=== PATIENT | male | born 1965 | race Caucasian/White ===

== ENCOUNTER 2018-02-10 10:05 | Day surgery (SDC) | payer OTHER ==
[2018-02-10] MEDS ORDERED: PROPOFOL 60 ML (13:37)
[2018-02-10] MEDS ORDERED: LIDOCAINE 2% (SDV) 5 ML INJ (13:37)
== END 2018-02-10 17:12 | disposition home or self-care (01) ==
LOC: GIL 10:05
DX: Z12.11 Encounter for screening for malignant neoplasm of colon (principal)
CPT/HCPCS: 45378

== ENCOUNTER 2019-02-01 05:55 | Inpatient (IN) | payer OTHER ==
[2019-01-31] MEDS: ACETAMINOPHEN 500 MG TAB PO (20:30)
[2019-02-01] MEDS ORDERED: CEFAZOLIN 2 GM/50 ML (PMX) 50 ML IVPB (06:00)
[2019-02-01] MEDS ORDERED: DESFLURANE 15 MIN (07:00)
[2019-02-01] MEDS ORDERED: EPHEDrine SULFATE 50 MG/5 ML SYG (07:00)
[2019-02-01] MEDS ORDERED: ROCURONIUM 50 MG INJ ×2 (07:00→07:25)
[2019-02-01] MEDS: ACETAMINOPHEN 500 MG TAB PO (07:06)
[2019-02-01] MEDS: GABAPENTIN 300 MG CAP PO (07:21)
[2019-02-01] MEDS ORDERED: PROPOFOL 40 ML ×3 (07:24→10:04)
[2019-02-01] MEDS ORDERED: FENTAnyl 50 MCG/ML VIAL ×2 (07:25→08:46)
[2019-02-01] MEDS ORDERED: ONDANSETRON 4 MG INJ (07:25)
[2019-02-01] MEDS ORDERED: CEFAZOLIN 1 GM INJ (07:25)
[2019-02-01] MEDS ORDERED: MIDAZOLAM 1 MG/ML 2 ML INJ (07:25)
[2019-02-01] MEDS ORDERED: LIDOCAINE 2% (SDV) 5 ML INJ (07:25)
[2019-02-01] MEDS ORDERED: FAMOTIDINE 20 MG INJ (07:25)
[2019-02-01] MEDS ORDERED: PHENYLephrine 10 MG INJ (07:26)
[2019-02-01] MEDS ORDERED: DIPHENHYDRAMINE 50 MG INJ IV (07:30)
[2019-02-01] MEDS ORDERED: FENTAnyl 50 MCG/ML VIAL IV ×2 (07:30)
[2019-02-01] MEDS ORDERED: MEPERIDINE 25 MG INJ IV (07:30)
[2019-02-01] MEDS ORDERED: HYDROmorphONE 1 MG/5 ML IV SYRINGE IV ×3 (07:30)
[2019-02-01] MEDS ORDERED: ONDANSETRON 4 MG INJ IV ×2 (07:30→12:30)
[2019-02-01] MEDS ORDERED: OXYCODONE/ACETAMINOPHEN (5/325) TAB PO ×2 (07:30)
[2019-02-01] MEDS ORDERED: ALBUTEROL 0.083% (NEB) 2.5 MG/3 ML AMP HHN (07:30)
[2019-02-01] MEDS ORDERED: LABETALOL HCL 20MG INJ IV (07:30)
[2019-02-01] MEDS ORDERED: morphine (1 MG/ML) 10ML SYRINGE IV ×2 (07:30)
[2019-02-01] MEDS: POLYMYXIN/BACITRACIN 1L IRRIG IRR (07:31)
[2019-02-01] MEDS ORDERED: POLYMYXIN/BACITRACIN 1L IRRIG (08:06)
[2019-02-01] MEDS: LIDOCAINE 2% (MDV) 20 ML INJ (08:39)
[2019-02-01] MEDS: BUPIVACAINE 0.5% (SDV) 30 ML INJ (08:39)
[2019-02-01] MEDS: TRANEXAMIC ACID 1GM/100ML(PMX) 100 ML (08:40)
[2019-02-01] MEDS ORDERED: SUGAMMADEX SODIUM 200 MG/2 ML VIAL IV (11:14)
[2019-02-01] MEDS ORDERED: NACL 0.9% 3 ML SYG IV (12:30)
[2019-02-01] MEDS ORDERED: LORAZEPAM 2 MG INJ IV (18:00)
[2019-02-01] MEDS: LEVETIRACETAM 500 MG TAB PO (21:09)
[2019-02-02] MEDS: HYDROCODONE/APAP (5/325) TAB PO ×3 (03:20→16:18)
[2019-02-02] MEDS: morphine 2 MG INJ IV ×3 (04:19→13:34)
[2019-02-02] MEDS: ACETAMINOPHEN 325 MG TAB PO ×2 (06:14→15:00)
[2019-02-02] MEDS: ENOXAPARIN 40 MG/0.4 ML SYG SC (06:17)
[2019-02-02 08:15] LABS: HEMOGLOBIN A1C 5.2 % (0-5.9)
[2019-02-02] MEDS: LEVETIRACETAM 500 MG TAB PO ×2 (08:28→20:47)
[2019-02-02] MEDS: HYDROCODONE/APAP (10/325) TAB GTB ×2 (17:01→22:08)
[2019-02-03 05:08] LABS: ADD MAN DIFF? NO
[2019-02-03 05:20] LABS: WHITE BLOOD COUNT 11.6 10^3/ul (4.8-10.8)
[2019-02-03 05:21] LABS: ABNORMAL IP MESSAGE 1; BASOPHILS % 0.3 % (0.0-2.0); EOSINOPHILS # 0.3 10^3/ul (0.0-0.5); EOSINOPHILS % 2.4 % (0.0-7.0); HEMATOCRIT 40.7 % (42.0-52.0); HEMOGLOBIN 14.5 g/dl (14.0-18.0); LYMPHOCYTES # 2.6 10^3/ul (0.8-2.9); LYMPHOCYTES % 22.2 % (15.0-51.0); MEAN CORPUSCULAR HEMOGLOBIN 29.1 pg (29.0-33.0); MEAN CORPUSCULAR HGB CONC 35.6 g/dl (32.0-37.0); MEAN CORPUSCULAR VOLUME 81.6 fl (82.0-101.0); MEAN PLATELET VOLUME 12.2 fl (7.4-10.4); MONOCYTE # 1.3 10^3/ul (0.3-0.9); MONOCYTES % 11.3 % (0.0-11.0); NEUTROPHIL # 7.4 10^3/ul (1.6-7.5); NEUTROPHILS % 63.5 % (39.0-77.0); PLATELET COUNT 90 10^3/UL (140-415); POSITIVE DIFF @See below; RED BLOOD COUNT 4.99 10^6/ul (4.70-6.10); RED CELL DISTRIBUTION WIDTH 12.3 % (11.5-14.5)
[2019-02-03 05:34] LABS: ANION GAP 13 (5-13); BLOOD UREA NITROGEN 11 mg/dl (7-20); CARBON DIOXIDE 26 mmol/L (21-31); CHLORIDE 98 mmol/L (97-110); CREATININE 0.71 mg/dl (0.61-1.24); Estimated GFR > 60 mL/min (>60); GLUCOSE 99 mg/dl (70-220); PHOSPHORUS 3.3 mg/dl (2.5-4.9); POTASSIUM 3.8 mmol/L (3.5-5.1); SODIUM 137 mmol/L (135-144)
[2019-02-03] MEDS: ENOXAPARIN 40 MG/0.4 ML SYG SC (06:00)
[2019-02-03] MEDS: HYDROCODONE/APAP (10/325) TAB GTB ×2 (07:51→15:09)
[2019-02-03] MEDS: LEVETIRACETAM 500 MG TAB PO (07:51)
== END 2019-02-03 16:00 | disposition home health service (06) | DRG 469 ==
LOC: REC 05:55 → MS1 13:20
PROVIDERS: Podiatrist Foot & Ankle Surgery
PROC: 0SRG0JZ Replacement of Left Ankle Joint with Synthetic Substitute, Open Approach (ICD-10-PCS; principal; 2019-02-01 07:30)
PROC: 0QSK04Z Reposition Left Fibula with Internal Fixation Device, Open Approach (ICD-10-PCS; 2019-02-01 07:30)
PROC: 0L8P0ZZ Division of Left Lower Leg Tendon, Open Approach (ICD-10-PCS; 2019-02-01 07:30)
DX: M19.072 Primary osteoarthritis, left ankle and foot (principal); S82.402K Unspecified fracture of shaft of left fibula, subsequent encounter for closed fracture with nonunion; M67.02 Short Achilles tendon (acquired), left ankle; R26.9 Unspecified abnormalities of gait and mobility; G89.29 Other chronic pain
CPT/HCPCS: 73590; 73610; 80048; 83036; 83735; 84100; 85025; 88304; 88311; 97116; 97161; 97530